=== PATIENT | male | born 1945 | race Native Hawaiian/Other Pacific Islander ===

== ENCOUNTER 2019-05-20 10:01 | Outpatient (CLI) | payer OTHER ==
[~2019-05-20 10:01] MED LIST: CETI10TA PO; LISI10TA11 PO; MICARDIS80 MG PO; PANT40TA PO; RANI150T78 PO; RANO500T PO; SIMV10TA PO; ULTRAM ER100 MG PO
== END 2019-05-20 23:49 | disposition home or self-care (01) ==
LOC: RAD 10:01
DX: R05 Cough (principal)

== ENCOUNTER 2019-07-15 08:17 | Outpatient (CLI) | payer OTHER ==
[2019-07-15 09:11] LABS: PLATELET COUNT 223 K/uL (142-355)
[2019-07-15 10:02] LABS: POTASSIUM 4.1 mmol/L (3.6-5.2)
== END 2019-07-15 22:58 | disposition home or self-care (01) ==
LOC: LABW 08:17
PROVIDERS: Internal Medicine Cardiovascular Disease
DX: Z79.899 Other long term (current) drug therapy (principal)
CPT/HCPCS: 36415; 80053; 80061; 85027

== ENCOUNTER 2019-11-22 16:19 | Outpatient (CLI) | payer OTHER | END 2019-11-22 20:12 | disposition home or self-care (01) | LOC: RAD 16:19 | DX: J32.9 Chronic sinusitis, unspecified (principal); R05 Cough ==

== ENCOUNTER 2020-04-10 08:39 | Emergency (ER) | payer OTHER ==
[~2020-04-10] VITALS: Ht 180.3 cm; Wt 81.6 kg
[2020-04-10 08:39] VITALS: TEMP 98.2
[2020-04-10 09:33] LABS: POTASSIUM 3.6 mmol/L (3.6-5.2); SODIUM 141 mmol/L (136-145)
[2020-04-10 09:36] LABS: PARTIAL THROMBOPLASTIN TIME 22.6 SECONDS (24.5-33.6)
[2020-04-10 09:53] LABS: PLATELET COUNT 249 K/uL (142-355)
[2020-04-10 12:30] VITALS: BP 134/75
== END 2020-04-10 12:50 | disposition home or self-care (01) ==
LOC: ED 08:42
PROVIDERS: Family Medicine
DX: R55 Syncope and collapse (principal); R07.89 Other chest pain
CPT/HCPCS: 80053; 81000; 82550; 84484; 85027; 85610; 85730; 93005; 99284

== ENCOUNTER 2020-04-24 07:56 | Outpatient (CLI) | payer OTHER ==
[2020-04-24 08:22] LABS: POTASSIUM 3.9 mmol/L (3.6-5.2)
== END 2020-04-24 21:25 | disposition home or self-care (01) ==
LOC: LABW 07:56
PROVIDERS: Internal Medicine Cardiovascular Disease
DX: Z79.899 Other long term (current) drug therapy (principal)
CPT/HCPCS: 36415; 80048

== ENCOUNTER 2020-09-28 08:11 | Outpatient (CLI) | payer OTHER, MEDICARE ==
[2020-09-28 08:27] LABS: PLATELET COUNT 211 K/uL (142-355)
== END 2020-09-28 19:31 | disposition home or self-care (01) ==
LOC: LABW 08:11
PROVIDERS: ATTEND Internal Medicine Cardiovascular Disease
DX: Z79.899 Other long term (current) drug therapy (principal)
CPT/HCPCS: 36415; 80053; 80061; 85027

== ENCOUNTER 2020-10-10 15:02 | Outpatient (CLI) | payer OTHER, MEDICARE | END 2020-10-10 21:10 | disposition home or self-care (01) | LOC: RAD 15:02 | PROVIDERS: ATTEND Nurse Practitioner Family | DX: M79.605 Pain in left leg (principal) ==

== ENCOUNTER 2021-05-03 08:54 | Outpatient (CLI) | payer OTHER, MEDICARE | END 2021-05-03 23:00 | disposition home or self-care (01) | LOC: RAD 08:54 | PROVIDERS: ATTEND Nurse Practitioner Family | DX: I10 Essential (primary) hypertension (principal); E78.49 Other hyperlipidemia; K21.9 Gastro-esophageal reflux disease without esophagitis ==

== ENCOUNTER 2021-05-28 10:04 | Outpatient (CLI) | payer OTHER, MEDICARE | END 2021-05-28 20:36 | disposition home or self-care (01) | LOC: RAD 10:04 | PROVIDERS: ATTEND Nurse Practitioner Family | DX: Z00.00 Encounter for general adult medical examination without abnormal findings (principal); Z00.8 Encounter for other general examination; Z13.6 Encounter for screening for cardiovascular disorders; Z71.89 Other specified counseling; Z13.31 Encounter for screening for depression; M85.88 Other specified disorders of bone density and structure, other site; Z84.89 Family history of other specified conditions ==

== ENCOUNTER 2021-10-03 14:36 | Outpatient (CLI) | payer OTHER, MEDICARE | END 2021-10-03 19:14 | disposition home or self-care (01) | LOC: RAD 14:36 | PROVIDERS: ATTEND Nurse Practitioner Family | DX: R07.89 Other chest pain (principal); M54.89 Other dorsalgia | CPT/HCPCS: 93005 ==

== ENCOUNTER 2021-11-08 10:58 | Outpatient (CLI) | payer OTHER, MEDICARE | END 2021-11-08 23:02 | disposition home or self-care (01) | LOC: RAD 10:58 | PROVIDERS: ATTEND Nurse Practitioner Family | DX: M25.569 Pain in unspecified knee (principal); M79.89 Other specified soft tissue disorders ==

== ENCOUNTER 2022-12-16 08:22 | Outpatient (CLI) | payer OTHER, MEDICARE ==
[2022-12-16 08:48] LABS: PLATELET COUNT 224 K/uL (142-355)
[2022-12-16 09:01] LABS: POTASSIUM 3.9 mmol/L (3.6-5.2)
== END 2022-12-16 19:35 | disposition home or self-care (01) ==
LOC: LABW 08:22
PROVIDERS: ATTEND Internal Medicine Cardiovascular Disease
DX: Z79.899 Other long term (current) drug therapy (principal)
CPT/HCPCS: 36415; 80053; 80061; 85027